=== PATIENT | male | born 1965 | race Caucasian/White ===

== ENCOUNTER 2022-01-02 00:46 | Inpatient (IN) | payer MEDICAID, SELFPAY ==
[~2022-01-02] VITALS: Ht 165.1 cm; Wt 83.9 kg
[2022-01-02 01:00] VITALS: BP 118/68
--- NOTE | 2022-01-02 01:07 | NUR ---
pt in lobby.
--- NOTE | 2022-01-02 03:29 | NUR ---
pt taken to rad.
[2022-01-02 04:08] LABS: BASOPHILS # (AUTO) 0.1 K/uL (0.00-0.22); BASOPHILS % (AUTO) 1.7 % (0.0-2.0); EOSINOPHILS # (AUTO) 0.1 K/uL (0-0.4); EOSINOPHILS % (AUTO) 1.1 % (0.0-4.0); HEMATOCRIT 40.7 % (36-52); HEMOGLOBIN 14.3 g/dL (12.0-18.0); LYMPHOCYTES % (AUTO) 26.4 % (20.5-51.1); MEAN CORPUSCULAR HEMOGLOBIN 32 pg (27-31); MEAN CORPUSCULAR HGB CONC 35 g/dL (33-37); MEAN CORPUSCULAR VOLUME 89.8 fL (80-94); MONOCYTES # (AUTO) 0.4 K/uL (0.8-1.0); MONOCYTES % (AUTO) 5.6 % (1.7-9.3); NEUTROPHILS # (AUTO) 4.9 K/uL (1.8-7.7); NEUTROPHILS % (AUTO) 65.2 % (42.2-75.2); PLATELET COUNT (AUTO) 656 K/uL (140-450); RED BLOOD CELL COUNT(AUTO) 4.53 MIL/uL (4.20-6.10); RED CELL DISTRIBUTION WIDTH 12.6 % (11.6-13.7); WHITE BLOOD COUNT (AUTO) 7.5 K/uL (4.8-10.8)
[2022-01-02 04:11] LABS: APPEARANCE,URINE CLEAR (CLEAR); BILIRUBIN,URINE NEGATIVE (NEGATIVE); BLOOD, URINE NEGATIVE (NEGATIVE); LEUKOCYTE ESTERASE ,URINE NEGATIVE (NEGATIVE); NITRITE, URINE NEGATIVE (NEGATIVE); UGLUCOSE 3+ (NEGATIVE)
--- NOTE | 2022-01-02 04:22 | NUR ---
pt taken to bed 05.
[2022-01-02 04:27] LABS: COLOR,URINE YELLOW (YELLOW)
[2022-01-02 04:29] LABS: ALBUMIN 3.8 g/dL (3.4-5.0); CARBON DIOXIDE 26.3 mmol/L (21-32); POTASSIUM 4.3 mmol/L (3.5-5.1); RBC,URINE 0-5 /HPF (0-5); TOTAL BILIRUBIN 0.5 mg/dL (0.0-1.0); WBC,URINE 0-5 /HPF (0-5)
[2022-01-02] MEDS ORDERED: NACL 0.9% 500 ML IV ONE (06:10)
[2022-01-02] MEDS ORDERED: ONDANSETRON 4 MG/2 ML VIAL IVP ONE (06:15)
--- NOTE | 2022-01-02 06:29 | NUR ---
PATIENT IN NO ACUTE DISTRESS OR DISOCMFORT AT THIS TIME.
--- NOTE | 2022-01-02 07:25 | NUR ---
RECEIVED REPORT FROM GUILLERMO JOLLY. ASSUMED CARE AT THIS TIME.
[2022-01-02 07:43] LABS: ANION GAP 21.4 (8-16); CARBON DIOXIDE 23.5 mmol/L (21-32); CREATININE 0.9 mg/dL (0.6-1.3); POTASSIUM 4.9 mmol/L (3.5-5.1)
[2022-01-02] MEDS ORDERED: ZOLPIDEM 5 MG TAB PO PRN (09:50)
[2022-01-02] MEDS ORDERED: ACETAMINOPHEN 325 MG TAB PO PRN (09:50)
[2022-01-02 11:08] LABS: MAGNESIUM 1.8 mg/dL (1.8-2.4)
--- NOTE | 2022-01-02 12:45 | NUR ---
PATIENT PROVIDED WITH LUNCH TRAY, SITTING UP IN BED EATING. ON BEDSIDE WRIST LINER, WILL CONTINUE TO MONITOR.
[2022-01-02] MEDS: ONDANSETRON 4 MG/2 ML VIAL IVP PRN ×2 (13:19→19:42)
--- NOTE | 2022-01-02 13:19 | NUR ---
PATIENT WITH ONE EPISODE OF VOMITING. ZOFRAN IVP GIVEN WITH MODERATE RELIEF. PATIENT PROVIDED WITH EMESIS BAG.
[2022-01-02] MEDS ORDERED: DEXTROSE 50% 50 ML SYR IVP PRN (13:55)
[2022-01-02] MEDS ORDERED: INSULIN LANTUS 100 UNITS/ML 10 ML VIAL SUBQ SCH ×2 (13:55→21:00)
--- NOTE | 2022-01-02 16:00 | NUR ---
PATIENT APPEARS TO BE RESTING IN BED WITH EYES CLOSED, AT BEDSIDE. PATIENT ON BEDSIDE DENITRATOR OPERATOR, WILL CONTINUE TO MONITOR.
[2022-01-02] MEDS: BLOOD GLUCOSE MONITORING 1 DEV DEV FS SCH ×2 (17:00→23:30)
[2022-01-02] MEDS: INSULIN LISPRO SLIDING SCALE 100 UNITS/ML VIAL SUBQ PRN ×2 (17:07→23:51)
--- NOTE | 2022-01-02 18:15 | NUR ---
PATIENT PROVIDED WITH DINNER TRAY, PATIENT SITTING UP EATING. ON BEDSIDE BURLAP MAN, WILL CONTINUE TO MONITOR.
--- NOTE | 2022-01-02 19:14 | NUR ---
Pt report given to GUILLERMO CANO. Transfer of care at this time.
[2022-01-02] MEDS: NACL 0.9% 1,000 ML IV SCH (19:35)
--- NOTE | 2022-01-02 19:41 | NUR ---
Patient reported, nausea, no vomitting, given Zofran 4 mg IV as PRN order.
--- NOTE | 2022-01-02 20:00 | NUR ---
Patient's Plan of Care was discussed and reviewed with MANAGER EXPRESS: ALICE FERRO
--- NOTE | 2022-01-02 20:26 | NUR ---
Patient transfer to M/S room 126B via [facility] with EMT.
--- NOTE | 2022-01-02 21:30 | NUR ---
Admitted from ER TO MED SURGICAL UNIT , with chief complaint of HEADACHE, NAUSEA, VOMITING, DIARRHEA AND BODY WEAKNESS SINCE YESTERDAY. 56 y/o ,Male, Cooperative, A/OX4. RESPIRATION EVEN AND UNLABORED. IV OF NS INFUSING AT 100 ML/HR, LEFT AC G20. ABLE TO AMBULATE BY HIMSELF TO THE BR. NO NAUSEA/VOMITING NOTED. DENIES DIARRHEA AT THIS TIME. HEAD TO TOE ASSESSMENT DONE WITH CHARGE NURSE DICK, SKIN IS INTACT. DENIES PAIN 0/10. oriented to call light, bed, phone,television, bathroom, smoking policy,visiting hours, procedures, ID bracelet on. Belongings list checked.
[2022-01-03] VITALS: BP 109/64
--- NOTE | 2022-01-03 01:00 | NUR ---
SLEEPING COMFORTABLY IN BED, RESPIRATION EVEN AND UNLABORED. CALL LIGHT IN REACH.
[2022-01-03 04:00] VITALS: BP 126/75
--- NOTE | 2022-01-03 04:00 | NUR ---
AMBULATED TO BR TO VOID, GAIT STEADY. VERBALIZED HE HAS NO DIARRHEA.
[2022-01-03] MEDS: NACL 0.9% 1,000 ML IV SCH ×3 (04:15→23:29)
[2022-01-03] MEDS: BLOOD GLUCOSE MONITORING 1 DEV DEV FS SCH ×4 (06:31→21:00)
[2022-01-03] MEDS: INSULIN LISPRO SLIDING SCALE 100 UNITS/ML VIAL SUBQ PRN ×4 (06:34→21:01)
[2022-01-03 06:47] LABS: BASOPHILS # (AUTO) 0.1 K/uL (0.00-0.22); BASOPHILS % (AUTO) 1.1 % (0.0-2.0); EOSINOPHILS # (AUTO) 0.5 K/uL (0-0.4); EOSINOPHILS % (AUTO) 7.4 % (0.0-4.0); HEMATOCRIT 37.5 % (36-52); LYMPHOCYTES # (AUTO) 2.7 K/uL (2.0-11.5); LYMPHOCYTES % (AUTO) 38.6 % (20.5-51.1); MEAN CORPUSCULAR HEMOGLOBIN 31 pg (27-31); MEAN CORPUSCULAR HGB CONC 35 g/dL (33-37); MEAN CORPUSCULAR VOLUME 90.1 fL (80-94); MONOCYTES # (AUTO) 0.5 K/uL (0.8-1.0); MONOCYTES % (AUTO) 6.7 % (1.7-9.3); NEUTROPHILS # (AUTO) 3.2 K/uL (1.8-7.7); NEUTROPHILS % (AUTO) 46.2 % (42.2-75.2); PLATELET COUNT (AUTO) 593 K/uL (140-450); RED BLOOD CELL COUNT(AUTO) 4.16 MIL/uL (4.20-6.10); RED CELL DISTRIBUTION WIDTH 12.8 % (11.6-13.7); WHITE BLOOD COUNT (AUTO) 6.9 K/uL (4.8-10.8)
--- NOTE | 2022-01-03 06:56 | NUR ---
NO COMPLAINT OF PAIN DURING THE SHIFT. NO N/V NOTED. CONDITION REMAIN STABLE. WILL ENDORSE TO AM SHIFT NURSE FOR CONTINUITY OF CARE.
--- NOTE | 2022-01-03 07:30 | NUR ---
PT IS ASLEEP IN BED WITH CHEST RISING AND FALLING EVEN AND UNLABORED. PT HAS A LEFT AC 18G RUNNING NS @100. SKIN INTACT. ALL SAFETY MEASURES IN PLACE, CALL LIGHT WITHIN REACH. WILL CONTINUE TO MONITOR.
[2022-01-03 07:34] LABS: MAGNESIUM 1.5 mg/dL (1.8-2.4); PHOSPHORUS 2.9 mg/dL (2.5-4.9)
[2022-01-03 07:51] LABS: ANION GAP 17.6 (8-16); CARBON DIOXIDE 23.4 mmol/L (21-32)
[2022-01-03 08:00] VITALS: BP 126/87
[2022-01-03 08:46] LABS: CREATININE 0.9 mg/dL (0.6-1.3)
[2022-01-03] MEDS ORDERED: INSULIN LANTUS 100 UNITS/ML 10 ML VIAL SUBQ SCH ×2 (09:10→21:00)
--- NOTE | 2022-01-03 10:27 | NUR ---
ALEXIA MEDICATION WAS ADMINISTERED PER MD ORDER, PT EDUCATION PROVIDED AND PT VERBALIZED UNDERSTANDING. PT AT BEDSIDE. IV RUNNING NS @ 100, IV PATENT AND INTACT. ALL QUESTIONS ANSWERED. ALL SAFETY MEASURES IN PLACE, CALL LIGHT WITHIN REACH. WILL CONTINUE TO MONITOR.
--- NOTE | 2022-01-03 12:00 | NUR ---
BLOOF GLUCOSE IS 206, 4 UNITS OF INSULIN ADMINISTERED PER SLIDING SCALE. PRN ZOFRAN ADMINISTERED PER MD ORDER FOR COMPLAINT OF NAUSEA
[2022-01-03] MEDS ORDERED: NACL 0.9% 1,000 ML IV ONE (13:05)
[2022-01-03] MEDS ORDERED: MAGNESIUM OXIDE 400 MG TAB PO ONE (13:05)
[2022-01-03] MEDS: ONDANSETRON 4 MG/2 ML VIAL IVP PRN (13:29)
--- NOTE | 2022-01-03 13:30 | NUR ---
ALEXIA MEDICATION ADMINISTERED PER MD ORDER. 1L BOLUS ADMINISTERED PER MD ORDER. PT REPORTS FEELING BETTER AFTER PRN ANTIEMETIC
[2022-01-03 16:00] VITALS: BP 123/69
--- NOTE | 2022-01-03 17:18 | NUR ---
BLOOD GLUCOSE IS 275, 6 UNITS OF INSULIN GIVEN TO PT. PT EDUCATION REGARDING DM PROVIDED AND ALL QUESTIONS HAS BEEN ANSWERED. ALL SAFETY MEASURES IN PLACE, CALL LIGHT WITHIN REACH WILL CONTINUE TO MONITOR.
--- NOTE | 2022-01-03 18:19 | NUR ---
ALL NEEDS HAVE BEEN MET THROUGHOUT SHIFT. ALL QUESTIONS REGARD POC HAS BEEN ANSWERED. PT CARE WILL BE ENDORSED TO PELLET MILL OPERATOR. ALL SAFETY MEASURES AND CALL LIGHT IN PLACE.
--- NOTE | 2022-01-03 19:15 | NUR ---
RECD. RESTING IN BED, AWAKE, A/OX4. RESPIRATION EVEN AND UNLABORED. IV OF NS INFUSING AT 100 ML/HR, LEFT AC G18. AMBULATORY TO THE BR. WHEN INQUIRED HOW HE IS, VERBALIZED FEELING BETTER. DENIES DIARRHEA AND NAUSEA. DENIES PAIN 0/10.
--- NOTE | 2022-01-03 19:22 | NUR ---
COVERING RN ROUNDS TO PATIENT. JOSE GOMEZ RN
[2022-01-03 19:43] VITALS: BP 137/85
--- NOTE | 2022-01-03 21:05 | NUR ---
SNACK GIVEN FOR THE NIGHT. SCHEDULED MEDICATIONS ADMINISTERED.
--- NOTE | 2022-01-03 23:00 | NUR ---
IN BED, STILL ZAWAKE. WATCHING TV. NO COMPLAINT OF PAIN, 0/10.
--- NOTE | 2022-01-04 01:00 | NUR ---
SLEEPING COMFORTABLY IN BED, RESPIRATION EVEN AND UNLABORED. CALL LIGHT IN REACH.
--- NOTE | 2022-01-04 03:00 | NUR ---
CHECKED PATIENT, IN BED COMFORTABLY ASLEEP.
[2022-01-04 04:00] VITALS: BP 126/75
--- NOTE | 2022-01-04 05:00 | NUR ---
ABLE TO SLEEP WELL. NO COMPLAINT OF PAIN DURING THE SHIFT.
[2022-01-04 06:47] LABS: BASOPHILS # (AUTO) 0.1 K/uL (0.00-0.22); BASOPHILS % (AUTO) 1.1 % (0.0-2.0); EOSINOPHILS # (AUTO) 0.6 K/uL (0-0.4); EOSINOPHILS % (AUTO) 9.4 % (0.0-4.0); HEMATOCRIT 36.8 % (36-52); HEMOGLOBIN 12.8 g/dL (12.0-18.0); LYMPHOCYTES # (AUTO) 2.9 K/uL (2.0-11.5); LYMPHOCYTES % (AUTO) 42.6 % (20.5-51.1); MEAN CORPUSCULAR HEMOGLOBIN 31 pg (27-31); MEAN CORPUSCULAR HGB CONC 35 g/dL (33-37); MONOCYTES # (AUTO) 0.3 K/uL (0.8-1.0); NEUTROPHILS # (AUTO) 2.9 K/uL (1.8-7.7); NEUTROPHILS % (AUTO) 41.9 % (42.2-75.2); PLATELET COUNT (AUTO) 591 K/uL (140-450); RED BLOOD CELL COUNT(AUTO) 4.09 MIL/uL (4.20-6.10); RED CELL DISTRIBUTION WIDTH 13.1 % (11.6-13.7); WHITE BLOOD COUNT (AUTO) 6.9 K/uL (4.8-10.8)
[2022-01-04] MEDS: BLOOD GLUCOSE MONITORING 1 DEV DEV FS SCH ×2 (06:50→12:29)
[2022-01-04] MEDS: INSULIN LISPRO SLIDING SCALE 100 UNITS/ML VIAL SUBQ PRN ×2 (06:51→12:30)
--- NOTE | 2022-01-04 07:00 | NUR ---
ABLE TO SLEEP WELL. CONDITION REMAIN STABLE. WILL ENDORSE TO AM SHIFT NURSE FOR CONTINUITY OF CARE.
[2022-01-04 07:12] LABS: MAGNESIUM 1.6 mg/dL (1.8-2.4); PHOSPHORUS 3.3 mg/dL (2.5-4.9)
[2022-01-04 07:22] LABS: CARBON DIOXIDE 27.5 mmol/L (21-32); CREATININE 0.8 mg/dL (0.6-1.3); POTASSIUM 3.5 mmol/L (3.5-5.1)
--- NOTE | 2022-01-04 07:30 | NUR ---
RECEIVED REPORT FROM GRAINER MACHINE. A/OX4. RESPIRATION EVEN AND UNLABORED. IV OF NS INFUSING AT 100 ML/HR, LEFT AC G18. AMBULATORY TO THE BR. DENIES DIARRHEA AND NAUSEA. DENIES PAIN 0/10.
--- NOTE | 2022-01-04 09:00 | NUR ---
DUE MEDS GIVEN. TOLERATED WELL
[2022-01-04] MEDS: NACL 0.9% 1,000 ML IV SCH (10:24)
[2022-01-04] MEDS ORDERED: METF-1022 PO (10:51)
[2022-01-04] MEDS ORDERED: LEVO750T51 PO (10:54)
--- NOTE | 2022-01-04 11:07 | NUR ---
PATIENT HAS BEEN SCREENED AND CATEGORIZED MODERATE NUTRITION RISK. PATIENT WILL BE SEEN WITHIN 3-5 DAYS OF ADMISSION. [address]
[2022-01-04 12:00] VITALS: BP 131/76
--- NOTE | 2022-01-04 12:00 | NUR ---
DISCHARGE INSTRUCTIONS AND PRESCRIPTION GIVEN
--- NOTE | 2022-01-04 12:30 | NUR ---
BLOOD SUGAR 320, COVERAGE GIVEN
--- NOTE | 2022-01-04 13:42 | NUR ---
DISCHARGED PT. ACCOMPANIED BY
== END 2022-01-04 13:35 | disposition home or self-care (01) | DRG 249 ==
LOC: MED 00:46 → MTU 09:55 → MMU 19:23
PROVIDERS: ADMIT General Practice; ATTEND General Practice
DX: A08.4 Viral intestinal infection, unspecified (principal); E87.8 Other disorders of electrolyte and fluid balance, not elsewhere classified; E87.1 Hypo-osmolality and hyponatremia; E11.65 Type 2 diabetes mellitus with hyperglycemia; E78.5 Hyperlipidemia, unspecified; D75.839 Thrombocytosis, unspecified; R74.01 Elevation of levels of liver transaminase levels; Z20.822 Contact with and (suspected) exposure to COVID-19; Z79.84 Long term (current) use of oral hypoglycemic drugs; Z79.899 Other long term (current) drug therapy
CPT/HCPCS: 36415; 74022; 80048; 80053; 81001; 82803; 82948; 83036; 83690; 83735; 83880; 84100; 84484; 85025; 87081; 96374; 99285; J1815; J2405; J7040

== ENCOUNTER 2023-09-30 16:05 | Emergency (ER) | payer MEDICAID, OTHER ==
[~2023-09-30] VITALS: Ht 160 cm; Wt 89.8 kg
[~2023-09-30 16:05] MED LIST: LEVO750T75 PO; METF-1253 PO
[2023-09-30 16:16] VITALS: BP 116/65; PULSE 117; RESP 18; TEMP 97.8; O2SAT 95
[2023-09-30] MEDS ORDERED: NACL 0.9% 2,000 ML IV ONE (16:50)
[2023-09-30 17:29] LABS: BASOPHILS # (AUTO) 0.1 K/uL (0.00-0.22); BASOPHILS % (AUTO) 0.3 % (0.0-2.0); EOSINOPHILS % (AUTO) 0.2 % (0.0-4.0); HEMATOCRIT 41.7 % (36-52); HEMOGLOBIN 14.1 g/dL (12.0-18.0); LYMPHOCYTES # (AUTO) 1.8 K/uL (2.0-11.5); LYMPHOCYTES % (AUTO) 10.1 % (20.5-51.1); MEAN CORPUSCULAR HEMOGLOBIN 31 pg (27-31); MEAN CORPUSCULAR HGB CONC 34 g/dL (33-37); MEAN CORPUSCULAR VOLUME 90.4 fL (80-94); MONOCYTES # (AUTO) 2.1 K/uL (0.8-1.0); MONOCYTES % (AUTO) 12.2 % (1.7-9.3); NEUTROPHILS # (AUTO) 13.4 K/uL (1.8-7.7); NEUTROPHILS % (AUTO) 77.2 % (42.2-75.2); PLATELET COUNT (AUTO) 206 K/uL (140-450); RED BLOOD CELL COUNT(AUTO) 4.61 MIL/uL (4.20-6.10); WHITE BLOOD COUNT (AUTO) 17.3 K/uL (4.8-10.8)
[2023-09-30 18:29] LABS: ALANINE AMINOTRANSFERASE 27 U/L (12-78); ALBUMIN 3.5 g/dL (3.4-5.0); ALKALINE PHOSPHATASE 97 U/L (50-136); ANION GAP 11.2 (8-16); ASPARTATE AMINOTRANSFERASE 17 U/L (15-37); CALCIUM 8.3 mg/dL (8.5-10.1); CARBON DIOXIDE 27.6 mmol/L (21-32); CHLORIDE 93 mmol/L (98-107); CREATININE 1.3 mg/dL (0.6-1.3); GFR ARICAN-AMERICAN 73 mL/min (>90); GFR NON ARICAN-AMERICAN 60 mL/min (>90); GLUCOSE 334 mg/dL (74-106); POTASSIUM 3.8 mmol/L (3.5-5.1); SODIUM SERUM 128 mmol/L (136-145); TOTAL BILIRUBIN 0.6 mg/dL (0.0-1.0); TOTAL PROTEIN, SERUM 7.5 g/dL (6.4-8.2); UREA NITROGEN, BLOOD 17 mg/dL (7-18)
[2023-09-30 18:32] LABS: LACTIC ACID 1.7 mmol/L (0.4-2.0)
[2023-09-30 18:45] VITALS: O2SAT 95
[2023-09-30] MEDS ORDERED: KETOROLAC 30 MG/ML VIAL IVP ONE (19:00)
[2023-09-30] MEDS ORDERED: ONDANSETRON 4 MG/2 ML VIAL IVP ONE (19:00)
[2023-09-30 19:40] VITALS: BP 97/55; PULSE 99; RESP 17; TEMP 99.6
[2023-09-30 19:53] VITALS: O2SAT 95
[2023-09-30 20:38] LABS: APPEARANCE,URINE CLEAR (CLEAR); BILIRUBIN,URINE NEGATIVE (NEGATIVE); BLOOD, URINE TRACE-I (NEGATIVE); COLOR,URINE YELLOW (YELLOW); LEUKOCYTE ESTERASE ,URINE NEGATIVE (NEGATIVE); NITRITE, URINE NEGATIVE (NEGATIVE); PROTEIN,URINE TRACE (NEGATIVE); UGLUCOSE 3+ (NEGATIVE); UROBILINOGEN,URINE 0.2 EU/dL (0.2 - 1)
[2023-09-30] MEDS ORDERED: cefTRIAXone 1,000 MG VIAL ONE (21:09)
[2023-09-30 21:26] LABS: BACTERIA,URINE None Seen /HPF (None Seen); RBC,URINE 0-5 /HPF (0-5); SQUAMOUS EPITHELIAL CELL,UR None Seen /LPF (0-3 (FEW)); WBC,URINE NONE SEEN /HPF (0-5)
[2023-09-30] MEDS ORDERED: DICYCLOMINE HCL LIQUID 20 MG, ALUMINUM HYD/MAG/SIMETHICONE 30 ML, LIDOCAINE VISCOUS 2% ... PO ONE ×3 (21:55)
[2023-09-30] MEDS ORDERED: ONDA-188 SL (22:11)
[2023-09-30] MEDS ORDERED: FAMO-90 PO (22:11)
[2023-09-30] MEDS ORDERED: ALUMINUM HYD/MAG/SIMETHICONE 30 ML UDC ONE ×3 (22:22→22:27)
[2023-09-30] MEDS ORDERED: DICYCLOMINE HCL LIQUID 10 MG/5 ML UDC ONE ×2 (22:22→22:27)
== END 2023-09-30 22:37 | disposition home or self-care (01) ==
LOC: MED 16:05
DX: E11.9 Type 2 diabetes mellitus without complications (principal); D72.829 Elevated white blood cell count, unspecified; I10 Essential (primary) hypertension; E86.0 Dehydration; Z79.4 Long term (current) use of insulin; Z79.899 Other long term (current) drug therapy
CPT/HCPCS: 36415; 71045; 80053; 81001; 82948; 83605; 84484; 85025; 87040; 87086; 93005; 96361; 96365; 96375; 99285; J0696; J1885; J2405; J7030; Q0092